=== PATIENT | female | born 1960 ===

== ENCOUNTER → 2016-12-26 | Outpatient (CLI) | payer OTHER ==
--- NOTE | 2016-12-26 09:23 | CT ---
EXAMINATION TYPE: CT chest wo con DATE OF EXAM: 12/26/2016 9:05 AM COMPARISON: NONE HISTORY: Patient having shortness of breath for a very long time CT DLP: [address] of the chest was performed with lung and mediastinal window settings submitted. The la ck of contrast limits evaluation of the vascular, mediastinal and parenchymal structures including th e upper abdomen. LUNGS: The lungs are clear and free of infiltrate. Mild linear left basilar atelectasis or parenchyma l scar. No pulmonary nodule or mass is detected. No pleural effusion. No CT evidence of interstitia l lung disease. MEDIASTINUM/GAIL: Thoracic aorta is of normal caliber with limited evaluation given lack of contrast . The heart is not enlarged. No evidence for mediastinal mass. No lymph nodes greater than 1cm. UPPER ABDOMEN: No significant abnormality is seen. OTHER: No significant other abnormality. IMPRESSION: 1. Mild linear left basilar atelectasis or parenchymal scar. Otherwise unremarkable study.
== END ==
LOC: RADCTMAIN 08:48
PROVIDERS: ATTEND Internal Medicine Pulmonary Disease
DX: R05 Cough (principal); R06.02 Shortness of breath
CPT/HCPCS: 71250

== ENCOUNTER → 2016-12-27 | Outpatient (CLI) | payer OTHER ==
--- NOTE | 2016-12-27 10:17 | MR ---
EXAMINATION TYPE: MR lumbar spine wo con DATE OF EXAM: 12/27/2016 10:03 AM COMPARISON: NONE HISTORY: neck pain, low back pain TECHNIQUE: T1 and T2 axial and sagittal images of the lumbar spine are submitted. FINDINGS: There is no abnormal signal seen within the visualized spinal cord or paraspinal soft tissu es. Subcentimeter left renal lesion is indeterminant. At L1-2 there is no disc herniation or canal stenosis. Mild hypertrophic change of the facets. Neural foramina patent. At L2-3 there is degenerative disc disease and right lateral disc bulging with mild right-sided thu inal encroachment. Left neural foramina patent. No Canal stenosis. At L3-4 there is mild hypertrophic change of the facets. There is right lateral disc bulging with mil d right-sided foraminal encroachment. No nerve root contact. At L4-5 there is circumferential disc bulging with mild to moderate effacement of thecal sac. Lateral recess stenosis noted. Ligamentum flavum and hypertrophy of the facet joints with moderate bilateral foraminal encroachment and mild to moderate canal stenosis. At L5-S1 there is hypertrophic change of the facets. There is an annular tear and central, right para central minimal disc bulge but no focal herniation, canal stenosis or neural foraminal encroachment. IMPRESSION: 1. Multilevel degenerative disc disease and disc bulging with the most marked findings at L4-5 demons trating bilateral moderate foraminal encroachment and moderate canal stenosis. 2. Lateral disc bulging L2-3 and L3-4 with mild right-sided foraminal encroachment. 3. Annular tear L5-S1 but no canal stenosis, focal herniation or neural foraminal encroachment. EXAMINATION TYPE: MR cervical spine wo con DATE OF EXAM: 12/27/2016 10:03 AM COMPARISON: NONE HISTORY: neck pain, low back pain TECHNIQUE: T1 sagittal and coronal, T2 sagittal, and gradient echo axial views of the cervical spine are submitted. FINDINGS: The cranial cervical junction is preserved. There is no abnormal signal seen within the sp inal cord or paraspinal soft tissues. At C2-3 there is no disc herniation or canal stenosis. No foraminal encroachment. At C3-4 there is ce ntral disc bulging. Mild effacement of thecal sac. Neural foramina remain patent. At C4-5 there is broad-based central and right paracentral disc herniation with cord compression. Mod erate to severe right-sided foraminal encroachment suspected nerve root contact. At C5-6 there is severe degenerative disc disease with uncovertebral joint hypertrophy. Moderate left foraminal encroachment and moderate to severe right foraminal encroachment. There is a Broad-based c entral disc herniation resulting in mild anterior compression of the spinal cord. At C6-7 there is left paracentral focal broad-based disc herniation which abuts the anterior margin t he spinal cord. No displacement. Mild left foraminal encroachment. Mild degenerative disc disease. At C7-T1 there is no disc herniation or canal stenosis. No foraminal encroachment. Incidental note made of a 1.2 cm right thyroid nodule. IMPRESSION: 1. At C4-5 there is broad-based central and right paracentral disc herniation with cord compression. Moderate to severe right-sided foraminal encroachment and suspected nerve root contact. 2. At C5-6 there is severe degenerative disc disease with uncovertebral joint hypertrophy. Moderate l eft foraminal encroachment and moderate to severe right foraminal encroachment. There is a broad-base d central disc herniation resulting in mild anterior compression of the spinal cord. 3. At C6-7 there is left paracentral focal broad-based disc herniation which abuts the anterior colton n of the spinal cord. No displacement. Mild left foraminal encroachment. Mild degenerative disc disea se. 4. Incidental note made of a 1.2 cm right thyroid solid nodule. 5. Indeterminate subcentimeter renal lesion.
== END | disposition home or self-care (01) ==
LOC: RADMRIMAIN 09:06
PROVIDERS: ATTEND Internal Medicine
DX: M50.221 Other cervical disc displacement at C4-C5 level (principal); M50.322 Other cervical disc degeneration at C5-C6 level; M48.06 Spinal stenosis, lumbar region; M51.36 Other intervertebral disc degeneration, lumbar region; M51.26 Other intervertebral disc displacement, lumbar region
CPT/HCPCS: 72141; 72148

== ENCOUNTER → 2017-03-21 | Outpatient (CLI) | payer MEDICARE, OTHER ==
[2017-03-21 11:53] LABS: Hepatitis B Surface Ag Index 0.05
[2017-03-21 11:59] LABS: Hepatitis B Core IgM Index 0.04
[2017-03-21 12:10] LABS: Hepatitis C Virus IgG Ab Negative (Negative); Hepatitis C Virus IgG Index 0.02
[2017-03-21 15:44] LABS: Treponemal Ab Non-Reactive (Non-Reactive)
== END | disposition home or self-care (01) ==
LOC: LABWHC1 10:40
PROVIDERS: ATTEND Obstetrics & Gynecology
DX: Z11.3 Encounter for screening for infections with a predominantly sexual mode of transmission (principal)
CPT/HCPCS: 36415; 80074; 86780; 87390

== ENCOUNTER → 2017-03-23 | Outpatient (CLI) | payer MEDICARE, OTHER ==
--- NOTE | 2017-03-23 08:12 | BD ---
EXAMINATION TYPE: MG DEXA axial skeleton. DATE OF EXAM: 03/23/2017 COMPARISON: NONE CLINICAL HISTORY: M81.0 KNOWN OSTEOPOROSIS Height: 58 IN Weight: 152 LBS FRAX RISK QUESTIONS: Alcohol (3 or more units per day): NO Family History (Parent hip fracture): NO Glucocorticoids (More than 3mos): YES, FOR ASTHMA (Ex: prednisone, prednisolone, methylprednisolone, dexamethasone, and hydrocortisone). History of Fracture in Adulthood: NO Secondary Osteoporosis: NO 1. Type 1 Diabetes: NO 2. Hyperthyroidism: NO 3. Menopause before 45: NO 4. Malnutrition: NO 5. Chronic liver disease: NO Rheumatoid Arthritis: NO Current Tobacco Use: NO RISK FACTORS HISTORY OF: Family History of Osteoporosis: NONE KNOWN Active: TRY TO BE Diet low in dairy products/other sources of calcium: YES Postmenopausal woman: TIFFANI, AT AGE 45 YRS OLD Lost more than 2 inches in height since high school: UNSURE Hyperparathyroidism: NO Adrenal Insufficiency: NO MEDICATIONS: Prednisone or other steroids: ASTHMA INHALER PRN How Long: FOR MANY YRS Additional Medications: CALTRATE WITH D, BP MEDS, NEXIUM, STATINS FOR CHOLESTEROL, DIABETIC MEDS Additional History: ASTHMA, ALLERGIES, ARTHRITIS,DIABETIC EXAM MEASUREMENTS: Bone mineral densitometry was performed using the [employer] System. Bone mineral density as measured about the Lumbar spine is: ----- L1-L4(G/cm2): 0.985 T Score Values are as follows: ----- L1: -1.7 ----- L2: -1.9 ----- L3: -2.0 ----- L4: -1.5 ----- L1-L4: -1.7 Bone mineral density THIS IS HER FIRST BONE DENSITY TEST WITH [facility] Bone mineral density about the R hip (g/cm2): 0.832 Bone mineral density about the L hip (g/cm2): 0.831 T Score values are as follows: -----R Neck: -1.8 -----L Neck: -1.7 -----R Total: -1.4 -----L Total: -1.4 Bone mineral density FIRST BONE DENSITY TEST AT [facility] FRAX %'S: THERE IS A 4.2% CHANCE OF A MAJOR OSTEOPOROTIC FX AND A 0.4% CHANCE OF A HIP FX ......ME OBABILITY IN 10 YRS TIME IMPRESSION: Osteopenia (T Score between -2.5 and -1 as noted by T score values There is slightly increased risk of fracture and the patient may be considered for treatment. Re-Screen 2-5 years FOR BOTH HIPS AND LUMBAR SPINE. MAJOR OSTEOPOROTIC FRACTURE RISK: 4.2% HIP FRACTURE RISK: 0.4% NOTE: T-SCORE=SD OF THE YOUNG ADULT MEAN.
== END | disposition home or self-care (01) ==
LOC: RADBDWWP 07:27
PROVIDERS: ATTEND Obstetrics & Gynecology
DX: M85.88 Other specified disorders of bone density and structure, other site (principal)
CPT/HCPCS: 77080

== ENCOUNTER → 2017-03-26 | Outpatient (CLI) | payer OTHER ==
--- NOTE | 2017-03-26 21:33 | US ---
EXAMINATION TYPE: US pelvis limited transvag DATE OF EXAM: 03/26/2017 COMPARISON: NONE CLINICAL HISTORY: R10.2 Pelvic pain. Lt oophorectomy and hysterectomy, pelvic pain on and off for awh ile TECHNIQUE: TA and TV Date of LMP: hysterectomy EXAM MEASUREMENTS: 1. Uterus: Surgically absent 2. Endometrium: Surgically absent 3. Right Ovary: Not seen due to atrophy and bowel gas 4. Left Ovary: Surgically absent 5. Bilateral Adnexa: wnl 6. Posterior cul-de-sac: wnl Uterus is surgically absent. No free fluid is seen in pelvis. Left ovary is surgically absent. Right ovary is not clearly identified. No suspicious adnexal masses are seen. IMPRESSION: No significant finding is seen to account for patient's symptoms.
== END | disposition home or self-care (01) ==
LOC: RADUSWWP 15:50
PROVIDERS: ATTEND Obstetrics & Gynecology
DX: R10.2 Pelvic and perineal pain (principal)
CPT/HCPCS: 76830; 76857

== ENCOUNTER → 2017-05-25 | Outpatient (CLI) | payer MEDICARE, OTHER ==
--- NOTE | 2017-05-25 13:06 | CT ---
EXAMINATION TYPE: CT sinus wo con DATE OF EXAM: 05/25/2017 COMPARISON: NONE HISTORY: Headaches CT DLP: 550.[address] of the paranasal sinuses was performed in the axial and coronal planes. Bone and soft tissue settings are submitted. The paranasal sinuses demonstrate normal aeration and development. Mild mucosal thickening at the base of the left maxillary sinus. The remaining paranasal sinuses are well-aerated. No air-fluid levels identified. The osteal meatal units are patent bilaterally. The nasal septum is midline. No bony destructive changes are seen within the field of view. IMPRESSION: Chronic mucosal thickening left maxillary sinus.
== END | disposition home or self-care (01) ==
LOC: RADCTMAIN 12:38
PROVIDERS: ATTEND Otolaryngology Facial Plastic Surgery
DX: J34.89 Other specified disorders of nose and nasal sinuses (principal); R51 Headache
CPT/HCPCS: 70486

== ENCOUNTER → 2017-06-23 | Outpatient (CLI) | payer MEDICARE, OTHER ==
--- NOTE | 2017-06-23 12:52 | MR ---
EXAMINATION TYPE: MR brain wo con DATE OF EXAM: 06/23/2017 COMPARISON: NONE HISTORY: dizziness T1-weighted sagittal, T2, FLAIR, and diffusion axial, and T2 coronal coronal views of the brain are s ubmitted. There is no evidence of acute ischemia. The ventricles, basal cisterns, and sulci overlying the conv exities are consistent with the patient's age. There is no mass effect. Craniocervical junction maintained. Sella turcica has a normal appearance. No cerebellopontine angle mass. Changes of chronic sinusitis noted. Minimal signal in the periventric ular white matter is significant. Mild chronic sinusitis. IMPRESSION: 1. No acute intracranial process. 2. Minimal nonspecific white matter changes. 3. Mild chronic sinusitis.
--- NOTE | 2017-06-23 12:55 | MR ---
EXAMINATION TYPE: MR thoracic spine wo con DATE OF EXAM: 06/23/2017 COMPARISON: NONE HISTORY: thoracic spine pain Standard multiplanar, multisequence MRI departmental protocol Multiplanar, multisequence images of the thoracic spine were acquired. Diffusion weighted imaging was performed. FINDINGS: There is loss of disc signal and majority of the levels compatible with mild multilevel degenerative disc disease. There is normal signal within the visualized spinal cord. No abnormal signal or signal paraspinal sof t tissues. Minor is anatomic. Vertebral body height is maintained. There are no compression deformities. There is no disc herniation, canal stenosis, or foraminal encroachment at any of the visualized level s. IMPRESSION: Multilevel mild degenerative disc disease.
== END | disposition home or self-care (01) ==
LOC: RADMRIMAIN 10:24
PROVIDERS: ATTEND Nurse Practitioner Acute Care
DX: R90.82 White matter disease, unspecified (principal); M51.34 Other intervertebral disc degeneration, thoracic region
CPT/HCPCS: 70551; 72146

== ENCOUNTER → 2017-11-29 | Outpatient (CLI) | payer MEDICARE, OTHER ==
[2017-11-29 16:44] LABS: Blood Urea Nitrogen 12 mg/dL (7-17)
--- NOTE | 2017-11-29 19:06 | CT ---
EXAMINATION TYPE: CT abdomen pelvis wo con DATE OF EXAM: 11/29/2017 COMPARISON: NONE HISTORY: Right side flank pain. CT DLP: 820.8 mGycm Automated exposure control for dose reduction was used. TECHNIQUE: Helical acquisition of images was performed from the lung bases through the pelvis. FINDINGS: There is small linear density at the left posterior lung base. There is no pleural effusion. There is no pericardial effusion. Liver spleen pancreas gallbladder appear normal. Bile ducts are not dilated. There is no adrenal mass . Kidneys have normal size and contour. There is no hydronephrosis. Ureters are not dilated. There is no retroperitoneal adenopathy. Appendix appears normal. I see no intestinal wall thickening. There are no dilated loops. There is no ascites. Bladder distend s smoothly. There is no sign of a pelvic mass. The lumbar spine is intact. IMPRESSION: NEGATIVE CT SCAN OF THE ABDOMEN AND PELVIS. NORMAL APPENDIX.
--- NOTE | 2017-11-29 19:08 | CT ---
EXAMINATION TYPE: CT abdomen w con DATE OF EXAM: 11/29/2017 COMPARISON: NONE HISTORY: Right side flank pain. CT DLP: 934 mGycm Automated exposure control for dose reduction was used. TECHNIQUE: Helical acquisition of images was performed from the lung bases through the top of iliac crest to include entire abdomen. CONTRAST: Performed with Oral Contrast and with IV Contrast, patient injected with 100ml mL of Omnipaque 300. FINDINGS: There is small linear density at the left lung base consistent with scarring or subsegmental atelecta sis. There is no pericardial effusion. There is no pleural effusion. Liver shows no focal defect. Spleen appears normal. There is no pancreatic mass. Gallbladder appears normal. Bile ducts are not dilated. There is no adrenal mass. Kidneys show satisfactory contrast opacification. There is no hydronephrosi s. There is no retroperitoneal adenopathy. There is no ascites. Appendix appears normal. I see no int estinal wall thickening. There are no dilated loops. There is no sign of free air. There is no ascite s. IMPRESSION: NEGATIVE CT SCAN OF THE ABDOMEN. I DO NOT SEE A CAUSE FOR RIGHT FLANK PAIN. MINIMAL SCARRING OR SUBSE GMENTAL ATELECTASIS AT THE LEFT LUNG BASE.
== END | disposition home or self-care (01) ==
LOC: RADCTMAIN 16:04
PROVIDERS: ATTEND Urology
DX: N13.30 Unspecified hydronephrosis (principal); Z88.1 Allergy status to other antibiotic agents; Z88.0 Allergy status to penicillin
CPT/HCPCS: 82565; 84520; 74160; 74176; 36415; Q9967

== ENCOUNTER → 2018-05-02 | Outpatient (CLI) | payer MEDICARE, OTHER ==
[2018-05-02 08:00] LABS: Blood Urea Nitrogen 12 mg/dL (7-17)
--- NOTE | 2018-05-02 08:59 | CT ---
EXAMINATION TYPE: CT brain wo/w con, CT orbits wo/w con DATE OF EXAM: 05/02/2018 COMPARISON: None HISTORY: Vision loss Rt eye CT DLP: 2311.8 (accession [id number]), 801 (accession [id number])mGycm CONTRAST: CT scan of the head is performed without and with IV Contrast, patient injected with 100 mL of Isovue 300. Dedicated CT of the orbits was also performed. Unenhanced followed by contrast enhanced CT of the brain is submitted for evaluation. The ventricles are midline. There is no evidence for intracranial hemorrhage or extra-axial collection. No mass e ffects are identified. Visualized bony calvarium is intact. Contrast is administered and no enhanci ng lesions are detected. No pathologic enhancement is identified. The orbits are symmetric. No evidence for radiopaque foreign body. No exophthalmos. Extraocular muscu lature appears symmetric bilaterally without abnormal thickening. Optic nerves are symmetric. No evid ence for intra or extraconal mass. If symptoms persist consider MRI. IMPRESSION: No distinct abnormality to account for the patient's symptoms.
== END | disposition home or self-care (01) ==
LOC: RADCTMAIN 07:23
PROVIDERS: ATTEND Ophthalmology
DX: H53.481 Generalized contraction of visual field, right eye (principal)
CPT/HCPCS: 82565; 84520; 76700; 70470; 70482; 36415; Q9967

== ENCOUNTER → 2018-05-02 | Outpatient (CLI) | payer MEDICARE, OTHER ==
--- NOTE | 2018-05-02 08:23 | US ---
EXAMINATION TYPE: US abdomen complete DATE OF EXAM: 05/02/2018 COMPARISON: NONE CLINICAL HISTORY: R10.84 gen abd pain R11.0 nausea. Nausea. NPO. Generalized pain. EXAM MEASUREMENTS: Liver Length: 15.1 cm Gallbladder Wall: 0.2 cm CBD: 0.3 cm CHD: 0.3 cm Spleen: 10.1 cm Right Kidney: 9.8 x 5.7 x 5.5 cm Left Kidney: 10.2 x 4.9 x 5.3 cm Pancreas: wnl Liver: wnl There is very mild increased echogenicity of the hepatic parenchyma with diminished visua lization of the portal triads most commonly relating to hepatic steatosis and limiting evaluation for underlying hepatic masses. Gallbladder: wnl Evidence for sonographic Tidwell's sign: neg CBD: wnl CHD: wnl Spleen: wnl Right Kidney: wnl Left Kidney: wnl Upper IVC: wnl Abd Aorta: wnl The liver is slightly hyperechoic. The intrahepatic portion of the IVC and proximal abdominal aorta are within normal limits. There is no evidence of cholelithiasis. Common bile duct is unremarkable. The visualized portions of the pancreas are homogenous. The spleen is unremarkable. Kidneys are s ymmetric and free of hydronephrosis. No renal lesions are seen. IMPRESSION: Very mild hyperechogenicity of the hepatic parenchyma suggesting early hepatic steatosis. Correlate with liver function tests.
== END | disposition home or self-care (01) ==
LOC: RADUSWWP 06:59
PROVIDERS: ATTEND Internal Medicine
DX: R93.2 Abnormal findings on diagnostic imaging of liver and biliary tract (principal); R10.84 Generalized abdominal pain
CPT/HCPCS: 76700

== ENCOUNTER 2018-09-03 08:16 | Day surgery (SDC) | payer MEDICARE, OTHER ==
[2018-08-29 15:49] VITALS: BMI 29.7
[~2018-09-03 08:16] MED LIST: LACTATED RINGERS 1,000 ML IV SCH; LIDOCAINE 1% 20 ML VIAL (10MG/ML) FOR IV START INTRADERMA PRN
[2018-09-03 08:51] LABS: Glucose,Whole Blood 125 mg/dL (75-99)
[2018-09-03 08:58] VITALS: TEMP 98.5
[2018-09-03] MEDS ORDERED: PROPOFOL 10 MG/ML 20 ML VIAL IV ONE (09:04)
[2018-09-03 09:31] VITALS: RESP 16
--- NOTE | 2018-09-03 09:31 | P.PCN ---
Date of Procedure: 09/03/18 Procedure(s) Performed: Procedure: Esophagogastroduodenoscopy and biopsy. Preoperative diagnosis: Chronic reflux symptoms and dysphagia. Postoperative diagnosis: Mild gastritis. Preparation and sedation: Was provided by anesthesia. Brief clinical history: The patient is a 58-year-old female who is scheduled for this evaluation to further assess chronic reflux symptoms and more recent onset of dysphagia and atypical chest pain and epigastric pain of 3-4 months duration. She lost around 10 pounds. She has been on PPI. This evaluation is to assess for complicated reflux disease or other pathology. Procedure: With the patient on her left lateral decubitus position and after informed consent and adequate sedation, I passed the Olympus-GIF a 190 video upper endoscope through the cricopharyngeus down the esophagus. GE junction was around 36 cm from the incisors. There was no definite hiatal hernia or any obvious esophagitis or complicated reflux disease. Specifically no strictures or Walker's esophagus. The endoscope was then advanced into the stomach which was insufflated with air and inspected in detail including the retroflex view in the cardia. There was some mottling and erythema in the antrum but no ulcers or erosions. Pyloric channel, duodenal bulb, post bulbar area and descending duodenum appeared within normal limits. Because of her symptoms, I obtained biopsies from the duodenum, antrum and esophagus then the endoscope was withdrawn. The patient tolerated the procedure well. Plan: The patient was reassured. Will await biopsy results and make further plans based on her course and biopsy results. We will keep you updated on her progress.
[2018-09-03 10:14] VITALS: BP 108/63; PULSE 60
== END 2018-09-03 10:19 | disposition home or self-care (01) ==
LOC: ORWHC2ENDO 08:16
DX: K29.50 Unspecified chronic gastritis without bleeding (principal); K21.9 Gastro-esophageal reflux disease without esophagitis; B96.81 Helicobacter pylori [H. pylori] as the cause of diseases classified elsewhere; E11.9 Type 2 diabetes mellitus without complications; I10 Essential (primary) hypertension; E78.5 Hyperlipidemia, unspecified; Z87.891 Personal history of nicotine dependence; Z79.84 Long term (current) use of oral hypoglycemic drugs; Z79.899 Other long term (current) drug therapy; Z91.041 Radiographic dye allergy status
CPT/HCPCS: 43239; J2704; 88305; 88342

== ENCOUNTER 2019-03-29 19:03 | Emergency (ER) | payer MEDICARE, OTHER ==
[2019-03-29 19:39] VITALS: TEMP 97.9
[2019-03-29] MEDS ORDERED: KETOROLAC 30 MG/ML 1 ML VIAL IVP STA (20:07)
[2019-03-29] MEDS ORDERED: PANTOPRAZOLE 40 MG/10 ML VIAL IVP STA (20:07)
[2019-03-29] MEDS ORDERED: METOCLOPRAMIDE 5 MG/ML 2 ML VIAL IVP STA (20:07)
[2019-03-29] MEDS ORDERED: SODIUM CHLORIDE 0.9% 1,000 ML IV STA (20:07)
[2019-03-29] MEDS ORDERED: MAG HYDROX/AL HYDROX/SIMETH 30 ML, HYOSCYAMINE ELIXIR 10 ML, CIMETIDINE HCL 300 MG, LID... PO STA ×4 (20:08)
--- NOTE | 2019-03-29 20:12 | ED ---
Abdominal Pain HPI - General Chief Complaint: Abdominal Pain Stated Complaint: Loss of appetite Source: patient, RN notes reviewed, old records reviewed Mode of arrival: ambulatory Limitations: no limitations - History of Present Illness Initial Comments: Patient is a 59-year-old female who presents emergency Department today with epigastric abdominal pain, concern for the infection of H. pylori. Patient reports that she has had he's abdominal pain. She states it isn't it feels different than her typical last reflux like pain. She gets worse in the right outer and epigastric region. Surgical history includes open-heart surgery for valve replacement as well as ovary removal. Patient reports that she's had no vomiting or diarrhea. She states that she seen Dr. Lopez stejayoscope proximally 6 months ago. At that time she was diagnosed with H. pylori. She states that she thinks that she had is reinfected at this time. Patient's are PCP and was discharged with Reglan and Protonix yesterday. Did not do treatment for H. pylori. - Related Data Home Medications Medication Instructions Recorded Confirmed Atorvastatin [Lipitor] 10 mg PO DAILY 08/29/18 09/03/18 Calcium Carbonate [Calcium] 600 mg PO DAILY 08/29/18 09/03/18 FLUoxetine HCL 40 mg PO DAILY 08/29/18 09/03/18 Lisinopril [Zestril] 5 mg PO DAILY 08/29/18 09/03/18 Loratadine [Claritin] 10 mg PO DAILY 08/29/18 09/03/18 Montelukast [Singulair] 10 mg PO DAILY 08/29/18 09/03/18 metFORMIN HCL 1,000 mg PO BID 08/29/18 09/03/18 Previous Rx's Medication Instructions Recorded Clarithromycin [Biaxin] 500 mg PO Q12HR #20 tablet 03/29/19 Omeprazole 40 mg PO DAILY #14 capsule. 03/29/19 metroNIDAZOLE [Flagyl] 500 mg PO BID #20 tab 03/29/19 Allergies Allergy/AdvReac Type Severity Reaction Status Date / Time amoxicillin Allergy Rash/Hives Verified 03/29/19 19:40 clindamycin Allergy Rash/Hives Verified 03/29/19 19:40 Iodinated Contrast- Oral and Allergy Rash/Hives Verified 09/03/18 08:27 IV Dye Penicillins Allergy Rash/Hives Verified 03/29/19 19:40 Review of Systems ROS Statement: Those systems with pertinent positive or pertinent negative responses have been documented in the HPI. ROS Other: All systems not noted in ROS Statement are negative. Past Medical History Past Medical History: Diabetes Mellitus, Hyperlipidemia, Hypertension Additional Past Medical History / Comment(s): seasonal allergies; mitral valve prolapse, H pylori History of Any Multi-Drug Resistant Organisms: None Reported Past Surgical History: Back Surgery, Hysterectomy Additional Past Surgical History / Comment(s): "heart surgery in the 70's for hole in heart"; neck fusion; L Oophorectomy; Carpal tunnel Past Anesthesia/Blood Transfusion Reactions: No Reported Reaction Past Psychological History: Depression Smoking Status: Former smoker - Past Family History Sister(s) Family Medical History: Cancer Additional Family Medical History / Comment(s): 3 sisters has Cancer Brother(s) Family Medical History: Cancer General Exam - General Exam Comments Initial Comments: This is a 59-year-old female. Alert and oriented. Limitations: no limitations General appearance: alert, in no apparent distress Head exam: Present: atraumatic, normocephalic, normal inspection Eye exam: Present: normal appearance, PERRL, EOMI. Absent: scleral icterus, conjunctival injection, periorbital swelling ENT exam: Present: normal exam, mucous membranes moist Neck exam: Present: normal inspection. Absent: tenderness, meningismus, lymphadenopathy Respiratory exam: Present: normal lung sounds bilaterally. Absent: respiratory distress, wheezes, rales, rhonchi, stridor Cardiovascular Exam: Present: regular rate, normal rhythm, normal heart sounds. Absent: systolic murmur, diastolic murmur, rubs, gallop, clicks GI/Abdominal exam: Present: soft, normal bowel sounds. Absent: distended, tenderness, guarding, rebound, rigid Extremities exam: Present: normal inspection, full ROM, normal capillary refill. Absent: tenderness, pedal edema, joint swelling, calf tenderness Back exam: Present: normal inspection Neurological exam: Present: alert, oriented X3, CN II-XII intact Psychiatric exam: Present: normal affect, normal mood Skin exam: Present: warm, dry, intact, normal color. Absent: rash Course Vital Signs 03/29/19 03/29/19 19:35 22:39 Temperature 97.9 F Pulse Rate 66 54 L Respiratory 18 16 Rate Blood Pressure 144/82 138/76 O2 Sat by Pulse 98 96 Oximetry Medical Decision Making - Medical Decision Making Patient is a 59 year old female wom presents today for evaluation for positive HPylori test from PCP and complains of GERD. Patient give IV fluids, GI cocktail and reports relief. Labs are reviewed and normal. Will DC patient with triple therapy for Hpylori. Discussed PCP and GI follow up. - Lab Data Result diagrams: 03/29/19 21:21 03/29/19 21:21 Lab Results 03/29/19 03/29/19 03/29/19 Range/Units 21:21 21:21 21:21 WBC 7.3 (3.8-10.6) k/uL RBC 4.84 (3.80-5.40) m/uL Hgb 14.4 (11.4-16.0) gm/dL Hct 44.4 (34.0-46.0) % MCV 91.9 (80.0-100.0) fL MCH 29.7 (25.0-35.0) pg MCHC 32.3 (31.0-37.0) g/dL RDW 12.8 (11.5-15.5) % Plt Count 228 (150-450) k/uL Neutrophils % 61 % Lymphocytes % 26 % Monocytes % 6 % Eosinophils % 4 % Basophils % 1 % Neutrophils # 4.5 (1.3-7.7) k/uL Lymphocytes # 1.9 (1.0-4.8) k/uL Monocytes # 0.5 (0-1.0) k/uL Eosinophils # 0.3 (0-0.7) k/uL Basophils # 0.1 (0-0.2) k/uL APTT (22.0-30.0) sec Sodium 139 (137-145) mmol/L Potassium 4.2 (3.5-5.1) mmol/L Chloride 110 H (98-107) mmol/L Carbon Dioxide 25 (22-30) mmol/L Anion Gap 4 mmol/L BUN 9 (7-17) mg/dL Creatinine 0.58 (0.52-1.04) mg/dL Est GFR (CKD-EPI)AfAm >90 (>60 ml/min/1.73 sqM) Est GFR (CKD-EPI)NonAf >90 (>60 ml/min/1.73 sqM) Glucose 92 (74-99) mg/dL Plasma Lactic Acid Memo 0.6 L (0.7-2.0) mmol/L Calcium 8.4 (8.4-10.2) mg/dL Total Bilirubin 0.5 (0.2-1.3) mg/dL AST 29 (14-36) U/L ALT 22 (9-52) U/L Alkaline Phosphatase 48 (38-126) U/L Troponin I (0.000-0.034) ng/mL Total Protein 5.1 L (6.3-8.2) g/dL Albumin 2.9 L (3.5-5.0) g/dL Amylase 45 (30-110) U/L Lipase 131 (23-300) U/L Urine Color Urine Appearance (Clear) Urine pH (5.0-8.0) Ur Specific Lander (1.001-1.035) Urine Protein (Negative) Urine Glucose (UA) (Negative) Urine Ketones (Negative) Urine Blood (Negative) Urine Nitrite (Negative) Urine Bilirubin (Negative) Urine Urobilinogen (<2.0) mg/dL Ur Leukocyte Esterase (Negative) Urine RBC (0-5) /hpf Urine WBC (0-5) /hpf Ur Squamous Epith Cells (0-4) /hpf Hyaline Casts (0-2) /lpf Urine Mucus (None) /hpf 03/29/19 03/29/19 03/29/19 Range/Units 21:21 21:21 21:21 WBC (3.8-10.6) k/uL RBC (3.80-5.40) m/uL Hgb (11.4-16.0) gm/dL Hct (34.0-46.0) % MCV (80.0-100.0) fL MCH (25.0-35.0) pg MCHC (31.0-37.0) g/dL RDW (11.5-15.5) % Plt Count (150-450) k/uL Neutrophils % % Lymphocytes % % Monocytes % % Eosinophils % % Basophils % % Neutrophils # (1.3-7.7) k/uL Lymphocytes # (1.0-4.8) k/uL Monocytes # (0-1.0) k/uL Eosinophils # (0-0.7) k/uL Basophils # (0-0.2) k/uL APTT 26.2 (22.0-30.0) sec Sodium (137-145) mmol/L Potassium (3.5-5.1) mmol/L Chloride (98-107) mmol/L Carbon Dioxide (22-30) mmol/L Anion Gap mmol/L BUN (7-17) mg/dL Creatinine (0.52-1.04) mg/dL Est GFR (CKD-EPI)AfAm (>60 ml/min/1.73 sqM) Est GFR (CKD-EPI)NonAf (>60 ml/min/1.73 sqM) Glucose (74-99) mg/dL Plasma Lactic Acid Memo (0.7-2.0) mmol/L Calcium (8.4-10.2) mg/dL Total Bilirubin (0.2-1.3) mg/dL AST (14-36) U/L ALT (9-52) U/L Alkaline Phosphatase (38-126) U/L Troponin I <0.012 (0.000-0.034) ng/mL Total Protein (6.3-8.2) g/dL Albumin (3.5-5.0) g/dL Amylase (30-110) U/L Lipase (23-300) U/L Urine Color Yellow Urine Appearance Clear (Clear) Urine pH 6.0 (5.0-8.0) Ur Specific Lander 1.024 (1.001-1.035) Urine Protein Negative (Negative) Urine Glucose (UA) Negative (Negative) Urine Ketones Trace H (Negative) Urine Blood Negative (Negative) Urine Nitrite Negative (Negative) Urine Bilirubin Negative (Negative) Urine Urobilinogen <2.0 (<2.0) mg/dL Ur Leukocyte Esterase Trace H (Negative) Urine RBC <1 (0-5) /hpf Urine WBC 2 (0-5) /hpf Ur Squamous Epith Cells 1 (0-4) /hpf Hyaline Casts 1 (0-2) /lpf Urine Mucus Few H (None) /hpf - Radiology Data Radiology results: report reviewed Normal upright abdomen. Chest x-ray is negative for any acute cardio pulmonary process. Disposition Clinical Impression: Gastritis, History of Helicobacter pylori infection Disposition: HOME SELF-CARE Condition: Good Instructions (If sedation given, give patient instructions): Gastritis (ED) Additional Instructions: Patient advised to any close follow-up with primary care physician. Return to emergency department if any alarming signs or symptoms occur. Prescriptions: Clarithromycin [Biaxin] 500 mg PO Q12HR #20 tablet metroNIDAZOLE [Flagyl] 500 mg PO BID #20 tab Omeprazole 40 mg PO DAILY #14 capsule.dr Is patient prescribed a controlled substance at d/c from ED?: No Referrals: Artemio Reeves MD [Primary Care Provider] - 1-2 days Time of Disposition: 22:45
[2019-03-29 21:35] LABS: Basophils # (A) 0.1 k/uL (0-0.2); Basophils % (A) 1 %; Eosinophils # (A) 0.3 k/uL (0-0.7); Eosinophils % (A) 4 %; HCT 44.4 % (34.0-46.0); HGB 14.4 gm/dL (11.4-16.0); Lymphocytes # (A) 1.9 k/uL (1.0-4.8); Lymphocytes % (A) 26 %; MCH 29.7 pg (25.0-35.0); MCHC 32.3 g/dL (31.0-37.0); MCV 91.9 fL (80.0-100.0); Mean Platelet Volume 6.9; Monocytes # (A) 0.5 k/uL (0-1.0); Monocytes % (A) 6 %; Neutrophils # (A) 4.5 k/uL (1.3-7.7); Neutrophils % (A) 61 %; Platelet Count 228 k/uL (150-450); RBC 4.84 m/uL (3.80-5.40); RDW 12.8 % (11.5-15.5); WBC 7.3 k/uL (3.8-10.6)
--- NOTE | 2019-03-29 21:40 | XR ---
EXAMINATION TYPE: XR KUB DATE OF EXAM: 03/29/2019 COMPARISON: None INDICATION: Abdomen pain TECHNIQUE: Single view abdomen upright view FINDINGS: There is a normal bowel gas pattern. No suspicious air-fluid levels or differential air-fluid levels are present. No free air is present within the [id number]. No mass effect is evident. Psoas margins are normal. No organomegaly is present. IMPRESSION: 1. Normal upright abdomen
--- NOTE | 2019-03-29 21:41 | XR ---
EXAMINATION TYPE: XR chest 2V DATE OF EXAM: 03/29/2019 COMPARISON: None INDICATION: Pain TECHNIQUE: Frontal and lateral views of the chest are obtained. FINDINGS: The heart size is normal. The pulmonary vasculature is normal. The lungs are clear. IMPRESSION: 1. No acute pulmonary process.
[2019-03-29 21:44] LABS: ALT 22 U/L (9-52); AST 29 U/L (14-36); African American GFR (CKD) >90 (>60 ml/min/1.73 sqM); Albumin 2.9 g/dL (3.5-5.0); Alkaline Phosphatase 48 U/L (38-126); Amylase 45 U/L (30-110); Anion Gap 4 mmol/L; Blood Urea Nitrogen 9 mg/dL (7-17); Calcium 8.4 mg/dL (8.4-10.2); Carbon Dioxide 25 mmol/L (22-30); Chloride 110 mmol/L (98-107); Glucose 92 mg/dL (74-99); Lipase 131 U/L (23-300); Sodium 139 mmol/L (137-145); Total Bilirubin 0.5 mg/dL (0.2-1.3); Total Protein 5.1 g/dL (6.3-8.2)
[2019-03-29 21:57] LABS: Potassium 4.2 mmol/L (3.5-5.1)
[2019-03-29 22:03] LABS: Appearance,Urine Clear (Clear); Bilirubin,Urine Negative (Negative); Blood,Urine Negative (Negative); Color,Urine Yellow; Glucose,Urine (UA) Negative (Negative); Hyaline Casts,Urine 1 /lpf (0-2); Ketones,Urine Trace (Negative); Leukocyte Esterase,Urine Trace (Negative); Mucus,Urine Few /hpf; Nitrite,Urine Negative (Negative); Protein,Urine Negative (Negative); RBC,Urine <1 /hpf (0-5); Specific Gravity,Urine 1.024 (1.001-1.035); Squamous Epithelial Cell,Urine 1 /hpf (0-4); Urobilinogen,Urine <2.0 mg/dL (<2.0); WBC,Urine 2 /hpf (0-5)
[2019-03-29 22:39] VITALS: BP 138/76; PULSE 54; RESP 16
== END 2019-03-29 23:38 | disposition home or self-care (01) ==
LOC: EC 19:03
DX: K29.70 Gastritis, unspecified, without bleeding (principal); Z86.19 Personal history of other infectious and parasitic diseases; E11.9 Type 2 diabetes mellitus without complications; E78.5 Hyperlipidemia, unspecified; I10 Essential (primary) hypertension; F32.9 Major depressive disorder, single episode, unspecified; Z87.891 Personal history of nicotine dependence; Z79.84 Long term (current) use of oral hypoglycemic drugs; Z79.899 Other long term (current) drug therapy; Z88.0 Allergy status to penicillin; Z91.041 Radiographic dye allergy status; Z90.710 Acquired absence of both cervix and uterus
CPT/HCPCS: 36415; 80053; 82150; 83605; 83690; 84484; 85025; 85730; 81001; 71046; 74018; 99284; 96374; 96375 ×2; 96361; J2765; J1885; C9113